=== PATIENT | female | born 1960 | race Caucasian/White ===

== ENCOUNTER 2025-02-17 08:52 | Emergency (ER) | payer MEDICARE ==
[~2025-02-17] VITALS: Ht 154.9 cm; Wt 65.9 kg
[2025-02-17 09:21] VITALS: TEMP 98.1; O2SAT 98
--- NOTE | 2025-02-17 09:44 | ELECTROCARDIOGRAPH REPORT ---
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
--- NOTE | 2025-02-17 10:22 | Physician Documentation ---
History of Present Illness ~ Chief Complaint: Seizure Stated Complaint: SZ Time Seen by MD: 09:24 Source: patient Mode of Arrival: EMS Exam Limitations: no limitations HPI 65-year-old female brought in by ambulance from [facility], patient was there getting blood drawn off, has a phobia of needles and history of syncope in the past, she says she felt weird prior to the episode, as reported that she had twitching and loss of consciousness, patient denies history of seizure, she did not have a postictal period after the event also no injury to the tongue or biting reported. Timing/Duration: minutes Loss of Consciousness: brief (seconds) Presyncopal Phase: blurred vision, lightheadedness Prehospital Care: 02 Syncopal Phase: at rest Postsyncopal Phase: rapid recovery History of: syncope Modifying Factors: Improves with: nothing Medication Reconciliation Allergies: Uncoded Allergies: IV CONTRAST (Allergy, Unknown, 02/17/25) Review of Systems All Other Systems at this time: Reviewed and Negative Constitutional: Reports: see HPI Eyes: Reports: blurred vision Genitourinary: Reports: no symptoms reported Neurological: Reports: fainting Musculoskeletal: Reports: no symptoms reported Integumentary: Reports: no symptoms reported Endocrine: Reports: no symptoms reported Physical Exam Vital Signs: RN Vital Signs have been reviewed: Yes, Temperature: 98.1, Source: Oral, Heart Rate: 59, Respiratory Rate: 10, BP: 136/67, Pulse Oximetry: 98, Weight: 65.910 Pulse Oximetry Reflects: adequate oxygenation General Appearance: alert, WD/WN, no apparent distress Neck: non-tender, full range of motion, supple Head: normal; No: deformity Pupils/EOM/Fundus: PERRLA, EOM intact EENT: normal ENT inspection, moist mucous membranes Respiratory: lungs clear, normal breath sounds, no respiratory distress Chest: no accessory muscle use, chest non-tender Cardiovascular: normal peripheral pulses, regular rate, rhythm, no edema Gastrointestinal: normal palpation, non-tender, bowels sounds present; No: pulsatile mass Back: normal inspection, no CVA tenderness, no vertebral tenderness Orientation / Memory / CN: oriented x3, 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 as tested Cerebellar Function: normal Progress Results/Orders Results/Orders Orders - JATIN FREIRE DO Chest,Single View (02/17/25 09:42) Monitor (02/17/25 09:42) Saline Lock (02/17/25 09:42) Oxygen (02/17/25 09:42) Completed Orders - JATIN FREIRE DO Chest,Single View (02/17/25 09:42) Cbc/Diff (02/17/25 09:42) BMP (02/17/25 09:42) Electrocardiogram (02/17/25 09:42) MG (02/17/25 09:51) PHOS (02/17/25 09:51) Vital Signs 02/17/25 02/17/25 02/17/25 09:21 10:30 10:45 Temp 98.1 Pulse 59 67 Resp 10 12 B/P (MAP) 136/67 134/60 (84) Pulse Ox 98 Laboratory Tests Test 02/17/25 10:31 White Blood Count 8.1 Red Blood Count 4.40 Hemoglobin 14.0 Hematocrit 42.1 Mean Corpuscular Volume 95.7 Mean Corpuscular Hemoglobin 31.9 H Mean Corpuscular Hemoglobin Concent 33.3 Red Cell Distribution Width 14.5 Platelet Count 202 Mean Platelet Volume 8.6 Neutrophils (%) (Auto) 78.7 H Lymphocytes (%) (Auto) 13.5 L Monocytes (%) (Auto) 6.2 Eosinophils (%) (Auto) 1.2 Basophils (%) (Auto) 0.4 Neutrophils # (Auto) 6.4 Lymphocytes # (Auto) 1.1 Monocytes # (Auto) 0.5 Eosinophils # (Auto) 0.1 Basophils # (Auto) 0.0 CBC Comment Sodium Level 143 Potassium Level 4.3 Chloride Level 105 Carbon Dioxide Level 25.3 Anion Gap 13 Blood Urea Nitrogen 15 Creatinine 0.83 Estimated GFR/1.73 m2 69 BUN/Creatinine Ratio 18.1 Glucose Level 117 H Calcium Level 9.0 Phosphorus Level 2.8 Magnesium Level 2.5 H Albumin 3.8 Chemistry Comments EKG/XRAY/CT/US/VASC/MRI EKG : Additional Comment Sinus bradycardia rate of 60, low voltage, normal axis, poor R-wave progression, no ST segment elevations or depressions, abnormal EKG. Chest X-Ray : Additional Comments Chest x-ray single view of the chest shows a normal cardiac silhouette no infiltrate no pneumothorax, essentially normal chest x-ray contemporaneously interpreted by ks Heart Score: Heart Score Response (Comments) Value History N/A 0 EKG N/A 0 Age N/A 0 Risk Factors N/A 0 Troponin N/A 0 Total 0 Medical Decision Making Differential Dx:Considerations: Include: anemia, CVA, cerebral occlusion, cerebral thrombosis, hypoglycemia, hypovolemia, labyrinthitis, myocardial infarction, TIA, vertigo central, vertigo peripheral Departure Disposition: 01 HOME / SELF CARE / HOMELESS Impression: Primary Impression: Syncope and collapse Condition: Improved Discharge Instructions: Syncope, Adult Referrals: NO PRIMARY CARE PROVIDER (PCP) Education Educated: Patient Educated regarding: diagnosis, treatment, prognosis Signature Scribe Signature: None Attestation: Dictated by myself JATIN FREIRE DO Feb 17, 2025 10:22
[2025-02-17 10:45] VITALS: BP 134/60; PULSE 67; RESP 12
[2025-02-17 10:47] LABS: BASOPHILS % (AUTO) 0.4 % (0-1); EOSINOPHILS # (AUTO) 0.1 X10'3 (0-0.9); EOSINOPHILS % (AUTO) 1.2 % (0-6); HEMATOCRIT 42.1 % (35.0-45.0); LYMPHOCYTES # (AUTO) 1.1 X10'3 (1.1-4.8); LYMPHOCYTES % (AUTO) 13.5 % (21-51); MEAN CORPUSCULAR HEMOGLOBIN 31.9 PG (27.0-31.0); MEAN CORPUSCULAR HGB CONC 33.3 g/dL (33.0-36.5); MEAN CORPUSCULAR VOLUME 95.7 FL (78-98); MEAN PLATELET VOLUME 8.6 FL (7.4-10.4); MONOCYTES # (AUTO) 0.5 X10'3 (0-0.9); MONOCYTES % (AUTO) 6.2 % (2-12); NEUTROPHILS # (AUTO) 6.4 X10'3 (1.8-7.7); NEUTROPHILS % (AUTO) 78.7 % (42-75); PLATELET COUNT 202 X10'3 (140-440); RED CELL DISTRIBUTION WIDTH 14.5 % (11.5-14.5); WHITE BLOOD COUNT 8.1 X10'3 (4.5-11.0)
[2025-02-17 10:57] LABS: ALBUMIN 3.8 G/DL (3.4-5.0); ANION GAP 13 (8-16); BLOOD UREA NITROGEN 15 MG/DL (7-18); BUN/CREATININE RATIO 18.1 (10.0-20.0); CHLORIDE 105 MMOL/L (99-107); CREATININE 0.83 MG/DL (0.40-0.90); GLUCOSE 117 MG/DL (70-104); MAGNESIUM 2.5 MG/DL (1.5-2.4); PHOSPHORUS 2.8 MG/DL (2.3-4.5); POTASSIUM 4.3 MMOL/L (3.5-5.1); SODIUM 143 MMOL/L (135-145); TOTAL CARBON DIOXIDE 25.3 MMOL/L (24-32); eCRCL 50 ML/MIN; eGFR 69 ML/MIN
--- NOTE | 2025-02-21 08:48 | RADIOLOGY REPORT ---
CLINICAL INFORMATION: 65 years old, Female; SYNCOPE. TECHNIQUE: Single frontal view of the chest was obtained. Please note that the exam title is 2 view chest, however only 1 view was submitted. COMPARISON: None FINDINGS: Lungs: Clear. Cardiac: Heart size is within normal limits. Pulmonary vasculature: Unremarkable Mediastinum/alfonso: Within normal limits. Bones: No evidence of acute osseous abnormality. Other: No other significant finding. IMPRESSION: No evidence of acute disease in the chest. A ERICK
== END 2025-02-17 14:47 | disposition home or self-care (01) ==
LOC: ER 08:53
DX: R55 Syncope and collapse (principal)
CPT/HCPCS: 36415; 71045; 80048; 83735; 84100; 85025; 93005; 99285